=== PATIENT | female | born 1960 | race Caucasian/White ===

== ENCOUNTER 2021-01-05 10:13 | Emergency (ER) | payer BC ==
--- NOTE | 2021-01-05 10:58 | ED ---
Recheck HPI - General Chief Complaint: Recheck/Abnormal Lab/Rx Stated Complaint: covid+, wants infusion Time Seen by Provider: 01/05/21 10:49 Source: patient, RN notes reviewed Mode of arrival: ambulatory Limitations: physical limitation - History of Present Illness Initial Comments: Patient is a 60-year-old female that presents to the emergency department complaining of sore throat and a mild fever. She got tested for Covid yesterday and was positive. She did bring her positive test with her. She notes she wants to undergo monoclonal antibody infusion. Patient was otherwise well- appearing in no apparent distress. She denied any chest pain shortness of breath headache nausea vomiting diarrhea constipation fatigue chills. - Related Data Allergies Allergy/AdvReac Type Severity Reaction Status Date / Time latex Allergy Dyspnea Verified 01/05/21 10:47 Review of Systems ROS Statement: Those systems with pertinent positive or pertinent negative responses have been documented in the HPI. ROS Other: All systems not noted in ROS Statement are negative. Past Medical History Past Medical History: Diabetes Mellitus, Hypertension History of Any Multi-Drug Resistant Organisms: None Reported Past Surgical History: Cholecystectomy Past Psychological History: No Psychological Hx Reported Smoking Status: Never smoker Past Alcohol Use History: None Reported Past Drug Use History: None Reported General Exam Limitations: physical limitation General appearance: alert, in no apparent distress, obese Head exam: Present: atraumatic, normocephalic, normal inspection Eye exam: Present: normal appearance, PERRL, EOMI. Absent: scleral icterus, conjunctival injection, periorbital swelling ENT exam: Present: normal exam, mucous membranes moist Neck exam: Present: normal inspection Respiratory exam: Present: normal lung sounds bilaterally. Absent: respiratory distress, wheezes, rales, rhonchi, stridor Cardiovascular Exam: Present: regular rate, normal rhythm, normal heart sounds. Absent: systolic murmur, diastolic murmur, rubs, gallop, clicks Extremities exam: Present: normal inspection, full ROM, normal capillary refill. Absent: tenderness, pedal edema, joint swelling, calf tenderness Neurological exam: Present: alert, oriented X3 Psychiatric exam: Present: normal affect, normal mood Skin exam: Present: warm, dry, intact, normal color. Absent: rash Course Vital Signs 01/05/21 10:41 Temperature 98.3 F Pulse Rate 75 Respiratory 18 Rate Blood Pressure 147/79 O2 Sat by Pulse 100 Oximetry Medical Decision Making - Medical Decision Making 60-year-old female Covid-positive wanting monoclonal antibodies. Patient did bring positive test with her. Monoclonal antibodies will be ordered. Case discussed with Dr. Beckman, patient can discharge home after infusion. Disposition Clinical Impression: COVID Disposition: HOME SELF-CARE Condition: Stable Instructions (If sedation given, give patient instructions): Coronavirus Disease 2019 (COVID-19) Additional Instructions: Please return to the Emergency Department if symptoms worsen or any other concerns. Quarantine per CDC guidelines. Tylenol and Motrin alternating every 3 hours as needed for pain or fevers. Is patient prescribed a controlled substance at d/c from ED?: No Referrals: Amaury Luna MD [Primary Care Provider] - 1-2 days Time of Disposition: 10:57
[2021-01-05] MEDS ORDERED: SODIUM CHLORIDE 0.9% 50 ML IVPB ONE (11:30)
[2021-01-05] MEDS ORDERED: BAMLANIVIMAB (EUA) 700 MG, ETESEVIMAB (EUA) 1,400 MG in SODIUM CHLORIDE 0.9% 50 ML IVPB ONE (11:30)
[2021-01-05 11:46] VITALS: RESP 16; TEMP 98.4
[2021-01-05] MEDS ORDERED: SODIUM CHLORIDE 0.9% 500 ML 500 ML in EMPTY BAG 1 BAG IV PRN (11:56)
[2021-01-05 12:44] VITALS: PULSE 76
[2021-01-05 13:18] VITALS: BP 128/68
== END 2021-01-05 13:25 ==
LOC: PROCWHC3 10:13 → EC 10:13 → EDSTATUS 11:38 → PROCWHC3 13:25
DX: U07.1 COVID-19 (principal); E11.9 Type 2 diabetes mellitus without complications; I10 Essential (primary) hypertension; Z91.040 Latex allergy status
CPT/HCPCS: 99283; 96360; J3490; M0245